=== PATIENT | male | born 1965 | race Caucasian/White ===

== ENCOUNTER 2023-12-20 16:07 | Emergency (ER) | payer OTHER ==
[2023-12-20] MEDS ORDERED: methylPREDNISolone Sod Succ/PF 125 MG/2 ML VIAL ONE (16:38)
[2023-12-20] MEDS ORDERED: Ipratropium/Albuterol 3 ML NEB ONE (16:40)
[2023-12-20 17:08] LABS: ALT (SGPT) 43 U/L (8-55); AST (SGOT) 31 U/L (5-34); Albumin 3.6 g/dL (3.5-5.0); Alkaline Phosphatase 139 U/L (40-110); Anion Gap 12 mmol/L (10-20); BUN (Urea Nitrogen) 17 mg/dL (8.4-25.7); Bilirubin, Total 1.4 mg/dL (0.2-1.2); Calc. Creatinine Clearance 0 mL/min (70-130); Calcium 8.6 mg/dL (7.8-10.44); Carbon Dioxide 28 mmol/L (22-29); Chloride 100 mmol/L (98-107); Estimated GFR 103; Globulin 2.1 g/dL (2.4-3.5); Glucose 122 mg/dL (70-105); Magnesium 1.9 mg/dL (1.6-2.6); Protein, Total 5.7 g/dL (6.0-8.3); Sodium 134 mmol/L (136-145)
[2023-12-20 17:14] LABS: Troponin I Less than 0.010 ng/mL (< 0.028)
[2023-12-20 17:20] LABS: Potassium 6.3 mmol/L (3.5-5.1)
[2023-12-20 17:21] LABS: Hemoglobin 8.9 g/dL (13.5-17.5); Mean Corpuscular HGB CONC 24.1 g/dL (32.0-36.0); Mean Corpuscular Hemoglobin 25.4 pg (27.0-33.0); Mean Corpuscular Volume 105.4 fL (81.2-95.1); Mean Platelet Volume 9.1 fL (7.4-10.4); Platelet Count 151 10x3/uL (150-450); Red Blood Cell (RBC) Count 3.51 10x6/uL (4.32-5.72); White Blood Cell (WBC) Count 534.2 10x3/uL (3.5-10.5)
[2023-12-20 17:24] LABS: MDiff Complete? YES
[2023-12-20 17:46] LABS: Influenza A by NAA Not Detected (NotDetected); Influenza B by NAA Not Detected (NotDetected); SARS-CoV-2 NAA Rapid Test Not Detected (NotDetected)
[2023-12-20 17:50] LABS: Lymphocytes 96 % (21-51); Monocytes 1 % (0-10); Neutrophil 1 % (42-75); Nucleated RBC (Manual Ct) 1 % (0); Other Cell Types 2
[2023-12-20 17:52] LABS: Smudge Cells MARKED
[2023-12-20 17:53] LABS: Anisocytosis SLIGHT = 6-15 cells (100X) (0-5/hpf)
[2023-12-20 17:54] LABS: Platelet Adequacy Comment Appears Adequate
[2023-12-20] MEDS ORDERED: Insulin Regular 300 UNITS/3 ML VIAL ONE (17:57)
[2023-12-20] MEDS ORDERED: Calcium Chloride 1 GM/10 ML Abboject SYRINGE ONE (17:57)
[2023-12-20] MEDS ORDERED: Dextrose 50% Abboject 50 ML SYRINGE SLOW IVP SCH (18:15)
[2023-12-20 18:28] LABS: Actual Bicarbonate (HCO3v) 26.5 mEq/L (22-28); Analyzer IN Cardio CS ER; Calcium, Ionized (venous) 0.99 mmol/L (1.16-1.32); Chloride (VBG) 101 mmol/L (98-106); Critical Notified By: CP.PH; Hematocrit-VBG 31 % (42.0-52.0); Hemoglobin (Hb) 10.7 g/dL (13.1-17.2); Potassium (VBG) 5.05 mmol/L (3.70-5.30); Puncture Site Other Site; RapidComm Collect By LAB.RB2; Sodium 136 mmol/L (133-146); pH (venous) 7.479 (7.32-7.43)
[2023-12-20] MEDS ORDERED: Furosemide 40 MG (4 mL) VIAL ONE (18:51)
[2023-12-20] MEDS ORDERED: LevoFLOXacin 750 mg/D5W 150 ml Premix Bag ONE (19:00)
[2023-12-20 19:58] LABS: Anion Gap 16 mmol/L (10-20); BUN (Urea Nitrogen) 16 mg/dL (8.4-25.7); Calc. Creatinine Clearance 0 mL/min (70-130); Calcium 8.7 mg/dL (7.8-10.44); Carbon Dioxide 25 mmol/L (22-29); Chloride 100 mmol/L (98-107); Estimated GFR 102; Glucose 156 mg/dL (70-105); Sodium 133 mmol/L (136-145)
[2023-12-20 20:02] LABS: Potassium 8.1 mmol/L (3.5-5.1)
[2023-12-20 21:40] LABS: Anion Gap 18 mmol/L (10-20); BUN (Urea Nitrogen) 17 mg/dL (8.4-25.7); Calc. Creatinine Clearance 0 mL/min (70-130); Calcium 9.1 mg/dL (7.8-10.44); Carbon Dioxide 26 mmol/L (22-29); Chloride 99 mmol/L (98-107); Estimated GFR 100; Glucose 167 mg/dL (70-105); Potassium 6.8 mmol/L (3.5-5.1); Sodium 136 mmol/L (136-145)
== END 2023-12-20 22:12 | disposition short-term general hospital (02) ==
LOC: CSHERS 16:07
DX: E87.5 Hyperkalemia (principal); J18.9 Pneumonia, unspecified organism; I50.9 Heart failure, unspecified; Z55.6 Problems related to health literacy
CPT/HCPCS: 36415; 71275; 80053; 82805; 83605; 83735; 83880; 84484; 85025; 87040; 93005; 94640; 94760; J1815; J1940; J1956; J2930; J7620; J7999